=== PATIENT | female | born 1965 | race Caucasian/White ===

== ENCOUNTER 2018-12-26 12:41 | Inpatient (IN) ==
[2018-12-26] MEDS ORDERED: ONDANSETRON 4 MG/2 ML VIAL IV PRN (12:55)
[2018-12-26] MEDS ORDERED: PROMETHAZINE 25 MG/1 ML VIAL IM PRN (12:55)
[2018-12-26] MEDS ORDERED: ACETAMINOPHEN 325 MG TABLET PO PRN (12:55)
[2018-12-26] MEDS ORDERED: METHOCARBAMOL 750 MG TABLET PO PRN (12:57)
[2018-12-26] MEDS ORDERED: DICYCLOMINE 10 MG CAPSULE PO PRN (12:57)
[2018-12-26 13:58] LABS: Basophils # 0.1 10*3/uL (0.0-0.2); Basophils % 0.5 % (0.0-0.8); Eosinophils # 0.2 10*3/uL (0.0-0.87); Eosinophils % 1.3 % (0.00-10.9); Hematocrit 39.6 VOL% (35.7-47.0); Immature Granulocytes % 0.4 %; Immature Granulocytes Absolute 0.05 #; Lymphocytes # 4.9 10*3/uL (1.4-4.0); Lymphocytes % 35.5 % (21.3-54.2); Mean Corpuscular HGB Conc 32.8 GM/DL (32-36); Mean Corpuscular Hemoglobin 30 PG (27-34); Mean Platelet Volume 10.4 FL (9.6-12.0); Monocytes # 0.9 10*3/uL (0.11-0.8); Monocytes % 6.6 % (1.7-12.7); Neutrophils # 7.6 10*3/uL (1.4-7.4); Neutrophils % 55.7 % (38.7-73.9); Platelet Count 256 T/CUMM (130-400); Red Blood Count 4.35 MC/CUMM (3.8-5.5); Red Cell Distribution Width 12.8 % (9.3-17.3); White Blood Count 13.7 T/CUMM (4-12)
[2018-12-26] MEDS ORDERED: THIAMINE INJ 100 MG, FOLIC ACID INJ 1 MG, MULTIVITAMIN INJ 10 ML in SODIUM CHLORIDE 0.9... IV ONE (14:00)
[2018-12-26 14:08] LABS: INR 0.9; PT Patient Result 10.3 SECS; Partial Thromboplastin Time 31.5 SECS (0-40)
[2018-12-26 14:29] LABS: Folate 10.3 NG/ML (5.4-24.0)
[2018-12-26 14:30] LABS: Alanine Aminotransferase 22 U/L (13-56); Albumin 3.9 G/DL (3.4-5.0); Alkaline Phosphatase 88 U/L (45-117); Aspartate Amino Transferase 15 U/L (0-37); Bilirubin,Total < 0.39 MG/DL (0.2-1.0); Blood Urea Nitrogen 6 MG/DL (7-18); Calcium 8.7 MG/DL (8.5-10.1); Glucose 79 MG/DL (74-106); Osmolality,Calculated 254.9 MOS/KG (273-304); Potassium 3.6 MMOL/L (3.5-5.1); Sodium 129 MMOL/L (136-145); Thyroid Stimulating Hormone 0.901 uIU/ml (0.358-3.74); Total Protein 7.3 G/DL (6.4-8.3)
[2018-12-26] MEDS ORDERED: PNEUMOCOCCAL VACCINE (23 VALENT) 0.5 ML VIAL IM ONE (16:19)
[2018-12-26] MEDS ORDERED: INFLUENZA VIRUS VACCINE 0.5 ML SYRINGE IM ONE (16:19)
[2018-12-26] MEDS: chlordiazePOXIDE 25 MG CAPSULE PO SCH ×2 (16:54→19:59)
[2018-12-26] MEDS: FLUCONAZOLE 200 MG TABLET PO SCH (16:54)
[2018-12-26] MEDS: NICOTINE 21 MG/24 HR PATCH TRANSDERM SCH (16:55)
[2018-12-26] MEDS: LORazepam 0.5 MG TABLET PO SCH ×3 (16:55→21:15)
[2018-12-26] MEDS: NYSTATIN CREAM 15 GM TUBE TOP SCH ×2 (18:29→21:17)
[2018-12-26 22:16] LABS: Barbiturates Screen,Urine Negative (Negative); Benzodiazepines Screen,Urine Positive (Negative); Cannabinoid Screen,Urine Negative (Negative); Opiate Screen,Urine Negative (Negative); Phencyclidine Screen,Urine Negative (Negative)
[2018-12-26] MEDS ORDERED: QUEtiapine 100 MG TABLET PO SCH (23:30)
[2018-12-26] MEDS: SERTRALINE 100 MG TABLET PO SCH (23:36)
[2018-12-26] MEDS: SODIUM CHLORIDE 0.9% 1,000 ML IV SCH (23:37)
[2018-12-27] MEDS: chlordiazePOXIDE 25 MG CAPSULE PO SCH ×4 (01:09→20:34)
[2018-12-27] MEDS: LORazepam 0.5 MG TABLET PO SCH ×5 (01:09→18:05)
[2018-12-27 05:26] LABS: Apearance,Urine CLEAR (Clear); Bacteria,Urine Many /HPF (Few); Bilirubin,Urine Negative (Negative); Blood, Urine Negative (Negative); Glucose,Urine (UA) Negative (Negative); Ketones,Urine Negative (Negative); Nitrite,Urine Negative (Negative); Protein,Urine Negative; RBC,Urine <1 /HPF (0-4); Squamous Epithelial Cell,Urine Occasional /HPF (0-10); Urine Color Yellow (Yellow); Urine Specific Gravity 1.005 (1.001-1.035); Urine Urobilinogen < 2.0 EU/DL (0.2-1.0); WBC,Urine <1 /HPF (0-6)
[2018-12-27 06:21] LABS: Risk Ratio 2.71; VLDL CHOLESTEROL 30.6 MG/DL
[2018-12-27] MEDS: PANTOPRAZOLE 40 MG TABLET PO SCH (09:33)
[2018-12-27] MEDS: NYSTATIN CREAM 15 GM TUBE TOP SCH ×3 (09:33→20:37)
[2018-12-27] MEDS: QUEtiapine 100 MG TABLET PO SCH ×2 (09:33→12:59)
[2018-12-27] MEDS: NICOTINE 21 MG/24 HR PATCH TRANSDERM SCH (09:33)
[2018-12-27] MEDS: FLUCONAZOLE 200 MG TABLET PO SCH (09:33)
[2018-12-27] MEDS ORDERED: ALBUTEROL 2.5 MG/3 ML NEB RESP TX PRN (11:11)
[2018-12-27] MEDS ORDERED: FLUTICASONE INH SCH (11:15)
[2018-12-27] MEDS ORDERED: VILANTEROL INH SCH (11:15)
[2018-12-27] MEDS: LORazepam 2 MG/1 ML VIAL IV PRN ×3 (11:22→22:05)
[2018-12-27] MEDS ORDERED: SERTRALINE 100 MG TABLET PO SCH (11:30)
[2018-12-27] MEDS: LEVOTHYROXINE 100 MCG TABLET PO SCH (12:59)
[2018-12-27] MEDS: BENZTROPINE 1 MG TABLET PO SCH ×2 (12:59→20:34)
[2018-12-27] MEDS: HydrOXYzine PAMOATE 25 MG CAPSULE PO PRN (17:08)
[2018-12-27] MEDS: SODIUM CHLORIDE 0.9% 1,000 ML IV SCH (18:18)
[2018-12-27] MEDS ORDERED: QUEtiapine 100 MG TABLET PO SCH (19:00)
[2018-12-27] MEDS: SERTRALINE 100 MG TABLET PO SCH (20:35)
[2018-12-28] MEDS: HydrOXYzine PAMOATE 25 MG CAPSULE PO PRN (00:11)
[2018-12-28] MEDS: LORazepam 0.5 MG TABLET PO SCH ×2 (00:12→06:11)
[2018-12-28] MEDS: LORazepam 2 MG/1 ML VIAL IV PRN ×2 (04:12→08:51)
[2018-12-28 04:58] LABS: Calcium 8.5 MG/DL (8.5-10.1)
[2018-12-28] MEDS: chlordiazePOXIDE 25 MG CAPSULE PO SCH (05:32)
[2018-12-28 07:53] VITALS: BP 146/95
[2018-12-28] MEDS: LEVOTHYROXINE 100 MCG TABLET PO SCH (08:48)
[2018-12-28] MEDS: NYSTATIN CREAM 15 GM TUBE TOP SCH (08:49)
[2018-12-28] MEDS: QUEtiapine 100 MG TABLET PO SCH (08:49)
[2018-12-28] MEDS: PANTOPRAZOLE 40 MG TABLET PO SCH (08:49)
[2018-12-28] MEDS: NICOTINE 21 MG/24 HR PATCH TRANSDERM SCH (08:49)
[2018-12-28] MEDS: FLUCONAZOLE 200 MG TABLET PO SCH (08:49)
[2018-12-28] MEDS ORDERED: FOLIC ACID 1 MG TABLET PO SCH (09:00)
[2018-12-28] MEDS ORDERED: ROSUVASTATIN 20 MG TABLET PO SCH (09:00)
[2018-12-28] MEDS ORDERED: MULTIVITAMIN (CENTRUM) TABLET PO SCH (09:00)
[2018-12-28] MEDS ORDERED: THIAMINE 100 MG TABLET PO SCH (09:00)
== END 2018-12-28 10:10 | disposition left against medical advice (07) | DRG 894 ==
LOC: N.4E 12:56
PROVIDERS: ADMIT Emergency Medicine; ATTEND Emergency Medicine

== ENCOUNTER 2019-02-12 16:19 | Inpatient (IN) ==
[2019-02-12] MEDS ORDERED: DIAZEPAM 10 MG/2 ML SYRINGE IV PRN (17:50)
[2019-02-12] MEDS ORDERED: NICOTINE 21 MG/24 HR PATCH TRANSDERM PRN (17:53)
[2019-02-12] MEDS ORDERED: ACETAMINOPHEN 325 MG TABLET PO PRN (17:53)
[2019-02-12] MEDS: chlordiazePOXIDE 25 MG CAPSULE PO PRN ×2 (18:34→23:20)
[2019-02-12] MEDS: DIAZEPAM 5 MG TABLET PO PRN (18:34)
[2019-02-12] MEDS: THIAMINE 200 MG/2 ML VIAL IV SCH (18:35)
[2019-02-12] MEDS: SODIUM CHLORIDE 0.9% 1,000 ML IV SCH (18:35)
[2019-02-12 18:52] LABS: Basophils # 0.1 10*3/uL (0.0-0.2); Basophils % 0.4 % (0.0-0.8); Eosinophils # 0.3 10*3/uL (0.0-0.87); Eosinophils % 1.9 % (0.00-10.9); Hematocrit 42.7 VOL% (35.7-47.0); Hemoglobin 13.9 GM/DL (12.0-16.0); Immature Granulocytes % 0.5 %; Immature Granulocytes Absolute 0.08 #; Lymphocytes # 6.6 10*3/uL (1.4-4.0); Lymphocytes % 42.1 % (21.3-54.2); Mean Corpuscular HGB Conc 32.6 GM/DL (32-36); Mean Corpuscular Hemoglobin 29 PG (27-34); Mean Corpuscular Volume 90.3 FL (87-102); Mean Platelet Volume 11.3 FL (9.6-12.0); Monocytes # 1.1 10*3/uL (0.11-0.8); Monocytes % 7.1 % (1.7-12.7); Neutrophils # 7.5 10*3/uL (1.4-7.4); Platelet Count 267 T/CUMM (130-400); Red Blood Count 4.73 MC/CUMM (3.8-5.5); Red Cell Distribution Width 13.7 % (9.3-17.3); White Blood Count 15.6 T/CUMM (4-12)
[2019-02-12 19:01] LABS: PT Patient Result 11.3 SECS
[2019-02-12 19:12] LABS: Alanine Aminotransferase 26 U/L (13-56); Albumin 3.8 G/DL (3.4-5.0); Alkaline Phosphatase 97 U/L (45-117); Aspartate Amino Transferase 22 U/L (0-37); Bilirubin,Total < 0.39 MG/DL (0.2-1.0); Blood Urea Nitrogen 9 MG/DL (7-18); Calcium 8.7 MG/DL (8.5-10.1); Glucose 105 MG/DL (74-106); Osmolality,Calculated 271.8 MOS/KG (273-304); Potassium 3.4 MMOL/L (3.5-5.1); Sodium 137 MMOL/L (136-145); Total Protein 7.4 G/DL (6.4-8.3)
[2019-02-12 23:07] LABS: Barbiturates Screen,Urine Negative (Negative); Benzodiazepines Screen,Urine Negative (Negative); Cannabinoid Screen,Urine Negative (Negative); Opiate Screen,Urine Negative (Negative); Phencyclidine Screen,Urine Negative (Negative)
[2019-02-12] MEDS ORDERED: SERTRALINE 100 MG TABLET PO SCH (23:30)
[2019-02-12] MEDS ORDERED: NON-FORMULARY MEDICATION (Quetiapine Fumarate [Seroquel] 300 MG) PO SCH (23:30)
[2019-02-13] MEDS: LURASIDONE 40 MG TABLET PO SCH ×4 (00:33→21:35)
[2019-02-13] MEDS: SERTRALINE 100 MG TABLET PO SCH ×2 (00:33→21:10)
[2019-02-13] MEDS: QUEtiapine 100 MG TABLET PO SCH ×3 (00:33→21:10)
[2019-02-13] MEDS: DIAZEPAM 5 MG TABLET PO PRN (04:46)
[2019-02-13] MEDS: chlordiazePOXIDE 25 MG CAPSULE PO PRN ×3 (04:46→15:55)
[2019-02-13] MEDS ORDERED: LURASIDONE 40 MG TABLET PO SCH (07:30)
[2019-02-13] MEDS: FOLIC ACID 1 MG TABLET PO SCH (08:34)
[2019-02-13] MEDS: MULTIVITAMIN (CENTRUM) TABLET PO SCH (08:34)
[2019-02-13] MEDS: THIAMINE 200 MG/2 ML VIAL IV SCH (08:35)
[2019-02-13] MEDS: SODIUM CHLORIDE 0.9% 1,000 ML IV SCH (08:38)
[2019-02-13] MEDS ORDERED: SERTRALINE 100 MG TABLET PO SCH (09:00)
[2019-02-13] MEDS ORDERED: LORazepam 1 MG TABLET PO PRN (11:11)
[2019-02-13] MEDS ORDERED: POTASSIUM CHLORIDE 20 MEQ TABLET PO ONE (11:15)
[2019-02-13] MEDS: cloNIDine 0.1 MG TABLET PO SCH ×2 (11:37→21:10)
[2019-02-13] MEDS: buPROPion SR 100 MG TABLET PO SCH (11:37)
[2019-02-13] MEDS ORDERED: ALBUTEROL 2.5 MG/3 ML NEB RESP TX PRN (13:00)
[2019-02-13] MEDS ORDERED: BUTALBITAL/ACETAMIN/CAFFEINE 50-325-40 MG TABLET PO PRN (13:32)
[2019-02-13] MEDS: PANTOPRAZOLE 40 MG TABLET PO SCH (13:54)
[2019-02-13] MEDS: NICOTINE 21 MG/24 HR PATCH TRANSDERM SCH (16:30)
[2019-02-13] MEDS: LORazepam 2 MG/1 ML VIAL IV SCH (17:48)
[2019-02-13] MEDS: DEXTROSE 5% NACL 0.45% 1,000 ML IV SCH (17:49)
[2019-02-13] MEDS: LORazepam 2 MG/1 ML VIAL IV PRN ×2 (19:23→21:15)
[2019-02-13] MEDS: DEXMEDETOMIDINE 200 MCG in SODIUM CHLORIDE 0.9% 48 ML IV PRN ×2 (20:05→23:25)
[2019-02-13] MEDS ORDERED: THIAMINE 200 MG/2 ML VIAL IV SCH (21:00)
[2019-02-13] MEDS: ENOXAPARIN 40 MG/0.4 ML SYRINGE SUBCUT SCH (21:10)
[2019-02-13] MEDS: THIAMINE INJ 400 MG in SODIUM CHLORIDE 0.9% 100 ML IV SCH (21:10)
[2019-02-13] MEDS: PREGABALIN 100 MG CAPSULE PO SCH (21:10)
[2019-02-13] MEDS: CETIRIZINE 10 MG TABLET PO SCH (21:10)
[2019-02-13] MEDS: BENZTROPINE 1 MG TABLET PO SCH (21:10)
[2019-02-14] MEDS: LORazepam 2 MG/1 ML VIAL IV SCH ×3 (01:50→17:55)
[2019-02-14] MEDS: DEXMEDETOMIDINE 200 MCG in SODIUM CHLORIDE 0.9% 48 ML IV PRN ×6 (03:30→22:10)
[2019-02-14] MEDS: buPROPion SR 100 MG TABLET PO SCH ×2 (08:16→22:09)
[2019-02-14] MEDS: FOLIC ACID 1 MG TABLET PO SCH (08:16)
[2019-02-14] MEDS: MULTIVITAMIN (CENTRUM) TABLET PO SCH (08:17)
[2019-02-14] MEDS: BENZTROPINE 1 MG TABLET PO SCH ×2 (08:17→22:08)
[2019-02-14] MEDS: cloNIDine 0.1 MG TABLET PO SCH ×3 (08:17→22:10)
[2019-02-14] MEDS: CHOLECALCIFEROL 1,000 UNIT TABLET PO SCH (08:17)
[2019-02-14] MEDS: ROSUVASTATIN 20 MG TABLET PO SCH (08:18)
[2019-02-14] MEDS: NICOTINE 21 MG/24 HR PATCH TRANSDERM SCH (08:18)
[2019-02-14] MEDS: QUEtiapine 100 MG TABLET PO SCH ×2 (08:19→22:09)
[2019-02-14] MEDS: LEVOTHYROXINE 112 MCG TABLET PO SCH (08:21)
[2019-02-14] MEDS: PANTOPRAZOLE 40 MG TABLET PO SCH (08:50)
[2019-02-14] MEDS ORDERED: NON-FORMULARY MEDICATION (Multivit-Min/Fa/Lycopen/Lutein [Centrum Silver Tablet] 1 EACH) PO SCH (09:00)
[2019-02-14 09:31] LABS: Basophils % 0.5 % (0.0-0.8); Eosinophils # 0.3 10*3/uL (0.0-0.87); Eosinophils % 3.2 % (0.00-10.9); Hematocrit 37.5 VOL% (35.7-47.0); Hemoglobin 11.9 GM/DL (12.0-16.0); Immature Granulocytes % 0.4 %; Immature Granulocytes Absolute 0.03 #; Lymphocytes # 3.3 10*3/uL (1.4-4.0); Lymphocytes % 42.2 % (21.3-54.2); Mean Corpuscular HGB Conc 31.7 GM/DL (32-36); Mean Corpuscular Hemoglobin 30 PG (27-34); Mean Corpuscular Volume 94.2 FL (87-102); Mean Platelet Volume 11.2 FL (9.6-12.0); Monocytes # 0.6 10*3/uL (0.11-0.8); Monocytes % 7.9 % (1.7-12.7); Neutrophils # 3.6 10*3/uL (1.4-7.4); Neutrophils % 45.8 % (38.7-73.9); Platelet Count 193 T/CUMM (130-400); Red Blood Count 3.98 MC/CUMM (3.8-5.5); Red Cell Distribution Width 13.6 % (9.3-17.3); White Blood Count 7.9 T/CUMM (4-12)
[2019-02-14] MEDS: DEXTROSE 5% NACL 0.45% 1,000 ML IV SCH ×2 (09:32→21:30)
[2019-02-14 10:04] LABS: Calcium 8.4 MG/DL (8.5-10.1); Osmolality,Calculated 279.4 MOS/KG (273-304)
[2019-02-14] MEDS: FLUTICASONE 50 MCG NASAL SPRAY 16 GM BOTTLE BOTH NARES SCH (10:15)
[2019-02-14] MEDS: Fluticasone/Vilanterol [Breo Ellipta 200-25 Mcg Inh] 1 PUFF INH SCH (10:15)
[2019-02-14] MEDS: THIAMINE INJ 400 MG in SODIUM CHLORIDE 0.9% 100 ML IV SCH ×2 (10:19→21:30)
[2019-02-14] MEDS: LACTOBACILLUS ACIDOPHILUS/BULGARICUS CHEW TABLET PO SCH (10:20)
[2019-02-14] MEDS: LISINOPRIL/HCTZ 10-12.5 MG TABLET PO SCH (10:30)
[2019-02-14] MEDS: LORazepam 2 MG/1 ML VIAL IV PRN ×2 (12:27→16:14)
[2019-02-14] MEDS ORDERED: ERGOCALCIFEROL 50,000 UNIT CAPSULE PO ONE (14:00)
[2019-02-14] MEDS: PREGABALIN 100 MG CAPSULE PO SCH (22:08)
[2019-02-14] MEDS: ENOXAPARIN 40 MG/0.4 ML SYRINGE SUBCUT SCH (22:08)
[2019-02-14] MEDS: LURASIDONE 40 MG TABLET PO SCH (22:08)
[2019-02-14] MEDS: SERTRALINE 100 MG TABLET PO SCH (22:09)
[2019-02-14] MEDS: CETIRIZINE 10 MG TABLET PO SCH (22:09)
[2019-02-15] MEDS: DEXMEDETOMIDINE 200 MCG in SODIUM CHLORIDE 0.9% 48 ML IV PRN ×3 (01:30→11:49)
[2019-02-15] MEDS: LORazepam 2 MG/1 ML VIAL IV SCH (01:30)
[2019-02-15 06:30] VITALS: BP 137/78
[2019-02-15] MEDS: LEVOTHYROXINE 112 MCG TABLET PO SCH (06:33)
[2019-02-15 06:36] LABS: Basophils # 0.1 10*3/uL (0.0-0.2); Basophils % 0.6 % (0.0-0.8); Eosinophils # 0.2 10*3/uL (0.0-0.87); Eosinophils % 2.7 % (0.00-10.9); Hemoglobin 12.4 GM/DL (12.0-16.0); Immature Granulocytes % 0.3 %; Immature Granulocytes Absolute 0.03 #; Lymphocytes # 4.4 10*3/uL (1.4-4.0); Lymphocytes % 48.4 % (21.3-54.2); Mean Corpuscular HGB Conc 31.8 GM/DL (32-36); Mean Corpuscular Hemoglobin 30 PG (27-34); Mean Corpuscular Volume 94.7 FL (87-102); Mean Platelet Volume 12.2 FL (9.6-12.0); Monocytes # 0.5 10*3/uL (0.11-0.8); Monocytes % 5.1 % (1.7-12.7); Neutrophils # 3.9 10*3/uL (1.4-7.4); Neutrophils % 42.9 % (38.7-73.9); Platelet Count 217 T/CUMM (130-400); Red Blood Count 4.12 MC/CUMM (3.8-5.5); Red Cell Distribution Width 13.4 % (9.3-17.3)
[2019-02-15 06:45] LABS: Calcium 8.4 MG/DL (8.5-10.1); Osmolality,Calculated 285.8 MOS/KG (273-304); Potassium 3.5 MMOL/L (3.5-5.1)
[2019-02-15] MEDS: THIAMINE INJ 400 MG in SODIUM CHLORIDE 0.9% 100 ML IV SCH ×2 (09:31→20:44)
[2019-02-15] MEDS: FOLIC ACID 1 MG TABLET PO SCH (09:33)
[2019-02-15] MEDS: CHOLECALCIFEROL 1,000 UNIT TABLET PO SCH (09:33)
[2019-02-15] MEDS: ROSUVASTATIN 20 MG TABLET PO SCH (09:33)
[2019-02-15] MEDS: cloNIDine 0.1 MG TABLET PO SCH ×2 (09:33→20:27)
[2019-02-15] MEDS: MULTIVITAMIN (CENTRUM) TABLET PO SCH (09:33)
[2019-02-15] MEDS: BENZTROPINE 1 MG TABLET PO SCH ×2 (09:33→20:27)
[2019-02-15] MEDS: buPROPion SR 100 MG TABLET PO SCH ×2 (09:34→20:27)
[2019-02-15] MEDS: QUEtiapine 100 MG TABLET PO SCH ×2 (09:34→20:29)
[2019-02-15] MEDS: PANTOPRAZOLE 40 MG TABLET PO SCH (09:34)
[2019-02-15] MEDS: LISINOPRIL/HCTZ 10-12.5 MG TABLET PO SCH (09:35)
[2019-02-15] MEDS: NICOTINE 21 MG/24 HR PATCH TRANSDERM SCH (09:35)
[2019-02-15] MEDS: FLUTICASONE 50 MCG NASAL SPRAY 16 GM BOTTLE BOTH NARES SCH (09:47)
[2019-02-15] MEDS: Fluticasone/Vilanterol [Breo Ellipta 200-25 Mcg Inh] 1 PUFF INH SCH (09:47)
[2019-02-15] MEDS: LACTOBACILLUS ACIDOPHILUS/BULGARICUS CHEW TABLET PO SCH (09:48)
[2019-02-15] MEDS: LORazepam 2 MG/1 ML VIAL IV PRN ×4 (10:44→19:40)
[2019-02-15] MEDS: DEXTROSE 5% NACL 0.45% 1,000 ML IV SCH (12:56)
[2019-02-15] MEDS: ENOXAPARIN 40 MG/0.4 ML SYRINGE SUBCUT SCH (20:26)
[2019-02-15] MEDS: SERTRALINE 100 MG TABLET PO SCH (20:27)
[2019-02-15] MEDS: LURASIDONE 40 MG TABLET PO SCH (20:28)
[2019-02-15] MEDS: PREGABALIN 100 MG CAPSULE PO SCH (20:28)
[2019-02-15] MEDS: CETIRIZINE 10 MG TABLET PO SCH (20:31)
[2019-02-16] MEDS: LORazepam 2 MG/1 ML VIAL IV PRN ×3 (05:10→11:24)
[2019-02-16 05:25] LABS: Basophils # 0.1 10*3/uL (0.0-0.2); Basophils % 0.6 % (0.0-0.8); Eosinophils # 0.2 10*3/uL (0.0-0.87); Hematocrit 38.5 VOL% (35.7-47.0); Hemoglobin 12.4 GM/DL (12.0-16.0); Immature Granulocytes % 0.5 %; Immature Granulocytes Absolute 0.05 #; Lymphocytes # 3.8 10*3/uL (1.4-4.0); Lymphocytes % 37.3 % (21.3-54.2); Mean Corpuscular HGB Conc 32.2 GM/DL (32-36); Mean Corpuscular Hemoglobin 30 PG (27-34); Mean Corpuscular Volume 93.9 FL (87-102); Mean Platelet Volume 11.4 FL (9.6-12.0); Monocytes # 0.7 10*3/uL (0.11-0.8); Monocytes % 7.1 % (1.7-12.7); Neutrophils # 5.4 10*3/uL (1.4-7.4); Neutrophils % 52.5 % (38.7-73.9); Platelet Count 201 T/CUMM (130-400); Red Cell Distribution Width 13.5 % (9.3-17.3); White Blood Count 10.2 T/CUMM (4-12)
[2019-02-16 05:45] LABS: Calcium 8.6 MG/DL (8.5-10.1); Potassium 3.4 MMOL/L (3.5-5.1)
[2019-02-16] MEDS: LEVOTHYROXINE 112 MCG TABLET PO SCH (06:05)
[2019-02-16] MEDS: FOLIC ACID 1 MG TABLET PO SCH (08:39)
[2019-02-16] MEDS: BENZTROPINE 1 MG TABLET PO SCH (08:39)
[2019-02-16] MEDS: buPROPion SR 100 MG TABLET PO SCH (08:39)
[2019-02-16] MEDS: CHOLECALCIFEROL 1,000 UNIT TABLET PO SCH (08:39)
[2019-02-16] MEDS: PANTOPRAZOLE 40 MG TABLET PO SCH (08:39)
[2019-02-16] MEDS: LISINOPRIL/HCTZ 10-12.5 MG TABLET PO SCH (08:39)
[2019-02-16] MEDS: NICOTINE 21 MG/24 HR PATCH TRANSDERM SCH (08:40)
[2019-02-16] MEDS: LACTOBACILLUS ACIDOPHILUS/BULGARICUS CHEW TABLET PO SCH (08:40)
[2019-02-16] MEDS: cloNIDine 0.1 MG TABLET PO SCH (08:40)
[2019-02-16] MEDS: ROSUVASTATIN 20 MG TABLET PO SCH (08:40)
[2019-02-16] MEDS: QUEtiapine 100 MG TABLET PO SCH (08:40)
[2019-02-16] MEDS: THIAMINE INJ 400 MG in SODIUM CHLORIDE 0.9% 100 ML IV SCH (08:59)
[2019-02-16] MEDS: FLUTICASONE 50 MCG NASAL SPRAY 16 GM BOTTLE BOTH NARES SCH (08:59)
[2019-02-16] MEDS: Fluticasone/Vilanterol [Breo Ellipta 200-25 Mcg Inh] 1 PUFF INH SCH (08:59)
[2019-02-16] MEDS: MULTIVITAMIN (CENTRUM) TABLET PO SCH (09:45)
[2019-02-16] MEDS ORDERED: buPROPion SR 150 MG TABLET PO SCH (10:20)
[2019-02-16] MEDS ORDERED: POTASSIUM CHLORIDE 20 MEQ TABLET PO ONE (10:50)
== END 2019-02-16 11:41 | disposition home or self-care (01) | DRG 897 ==
LOC: N.4E 16:24 → SUATTDRO 16:24 → N.CC 02-13 18:24
PROVIDERS: ADMIT Hospitalist; ATTEND Hospitalist

== ENCOUNTER 2022-04-19 11:55 | Observation (INO) ==
[2022-04-19] MEDS ORDERED: NITROGLYCERIN 2% OINT 1 INCH/GM PACK TOP STA (12:24)
[2022-04-19] MEDS ORDERED: METOPROLOL TARTRATE 5 MG/5 ML VIAL IV STA ×2 (12:24→13:17)
[2022-04-19] MEDS ORDERED: ALUM/MAG/SIMETH/LIDO VISC 1:1 30 ML BOTTLE PO STA (12:24)
[2022-04-19 12:49] LABS: Basophils # 0.1 10*3/uL (0.0-0.2); Basophils % 0.5 % (0.0-0.8); Eosinophils # 0.4 10*3/uL (0.0-0.87); Eosinophils % 2.9 % (0.00-10.9); Hematocrit 42.6 VOL% (35.7-47.0); Immature Granulocytes % 0.3 %; Immature Granulocytes Absolute 0.04 #; Lymphocytes # 4.7 10*3/uL (1.4-4.0); Mean Corpuscular HGB Conc 32.9 GM/DL (32-36); Mean Corpuscular Volume 94.7 FL (87-102); Mean Platelet Volume 11.1 FL (9.6-12.0); Monocytes # 0.7 10*3/uL (0.11-0.8); Monocytes % 5.1 % (1.7-12.7); Neutrophils % 55.2 % (38.7-73.9); Platelet Count 241 T/CUMM (130-400); Red Cell Distribution Width 14.6 % (9.3-17.3); White Blood Count 12.9 T/CUMM (4-12)
[2022-04-19 13:08] LABS: Alanine Aminotransferase 42 U/L (13-56); Albumin 3.2 G/DL (3.4-5.0); Alkaline Phosphatase 70 U/L (45-117); Aspartate Amino Transferase 35 U/L (0-37); Bilirubin,Total < 0.39 MG/DL (0.20-1.00); Blood Urea Nitrogen 4 MG/DL (7-18); Calcium 9.1 MG/DL (8.5-10.1); Carbon Dioxide 26 MMOL/L (21-32); Chloride 106 MMOL/L (98-107); Glucose 133 MG/DL (74-106); Osmolality,Calculated 279.3 MOS/KG (273-304); Sodium 141 MMOL/L (136-145); Total Protein 6.2 G/DL (6.4-8.2)
[2022-04-19 13:24] LABS: Platelet Estimate Normal
[2022-04-19] MEDS ORDERED: ZALEPLON 5 MG CAPSULE PO PRN (13:39)
[2022-04-19] MEDS ORDERED: hydrALAZINE 20 MG/1 ML VIAL IV PRN (13:39)
[2022-04-19] MEDS ORDERED: diphenhydrAMINE CAP 25 MG CAPSULE PO PRN (13:39)
[2022-04-19] MEDS ORDERED: CALCIUM CARBONATE CHEW 500 MG TABLET PO PRN (13:39)
[2022-04-19] MEDS ORDERED: SIMETHICONE CHEW 125 MG TABLET PO PRN (13:39)
[2022-04-19] MEDS ORDERED: LACTULOSE 20 GM/30 ML UDCUP PO PRN (13:39)
[2022-04-19] MEDS ORDERED: ALUMINUM/MAGNES/SIMETH MAX STR 30 ML UDCUP PO PRN (13:39)
[2022-04-19] MEDS ORDERED: BISACODYL 5 MG TABLET PO PRN (13:39)
[2022-04-19] MEDS ORDERED: ONDANSETRON 4 MG/2 ML VIAL IV PRN (13:39)
[2022-04-19] MEDS ORDERED: FLUTICASONE 50 MCG NASAL SPRAY 16 GM BOTTLE BOTH NARES PRN (13:43)
[2022-04-19] MEDS ORDERED: DEXTROMETHORPHAN PO PRN (13:43)
[2022-04-19] MEDS ORDERED: [UNRECOGNIZED DRUG - OTHER] PO PRN (13:43)
[2022-04-19] MEDS ORDERED: traMADol 50 MG TABLET PO PRN (13:43)
[2022-04-19] MEDS ORDERED: tiZANidine 4 MG TABLET PO PRN (13:43)
[2022-04-19] MEDS ORDERED: PHENYLEPHRINE PO PRN (13:43)
[2022-04-19] MEDS ORDERED: LOPERAMIDE 2 MG CAPSULE PO PRN (13:43)
[2022-04-19] MEDS ORDERED: GLUCAGON 1 MG VIAL IM PRN (13:43)
[2022-04-19] MEDS ORDERED: SIMETHICONE 125 MG PO PRN (13:43)
[2022-04-19] MEDS ORDERED: BROMPHENIRAMINE PO PRN (13:43)
[2022-04-19] MEDS ORDERED: DEXTROSE 10% 250 ML BAG IV PRN (13:43)
[2022-04-19] MEDS ORDERED: ALIROCUMAB 75 MG/ML SUBCUT SCH (13:45)
[2022-04-19] MEDS ORDERED: ENOXAPARIN 40 MG/0.4 ML SYRINGE SUBCUT SCH (14:00)
[2022-04-19 14:18] LABS: Urine Appearance Clear (Clear); Urine Color Yellow (Yellow)
[2022-04-19 14:19] LABS: Bilirubin,Urine Negative (Negative); Blood, Urine Negative (Negative); Glucose,Urine (UA) Negative (Negative); Ketones,Urine Negative (Negative); Nitrite,Urine Negative (Negative); Protein,Urine Negative (Negative); Urine Urobilinogen 0.2 eU/dL (<2.0)
[2022-04-19 14:20] LABS: Bacteria,Urine Occasional /HPF (Few); RBC,Urine 1 /HPF (0-4); Squamous Epithelial Cell,Urine Occasional /HPF (0-10)
[2022-04-19] MEDS ORDERED: ALBUTEROL 2.5 MG/3 ML NEB RESP TX PRN (14:28)
[2022-04-19] MEDS ORDERED: clonazePAM 0.5 MG TABLET PO PRN ×2 (14:30→14:52)
[2022-04-19] MEDS ORDERED: clonazePAM 0.5 MG TABLET PO ONE (14:40)
[2022-04-19] MEDS: NICOTINE 21 MG/24 HR PATCH TRANSDERM SCH (15:06)
[2022-04-19] MEDS: GABAPENTIN 400 MG CAPSULE PO SCH ×2 (15:06→21:04)
[2022-04-19] MEDS: INSULIN LISPRO 100 UNIT/ML SUBCUT SCH ×2 (16:41→21:53)
[2022-04-19] MEDS: carvediloL 25 MG TABLET PO SCH (17:52)
[2022-04-19] MEDS: MORPHINE 2 MG/1 ML SYRINGE IV PRN (18:29)
[2022-04-19] MEDS ORDERED: LOSARTAN 50 MG TABLET PO SCH (21:00)
[2022-04-19] MEDS: cloNIDine 0.1 MG TABLET PO SCH (21:03)
[2022-04-19] MEDS ORDERED: QUEtiapine 100 MG TABLET PO SCH (22:30)
[2022-04-19] MEDS ORDERED: clonazePAM 0.5 MG TABLET PO SCH (22:30)
[2022-04-19] MEDS: BENZTROPINE 1 MG TABLET PO SCH (23:03)
[2022-04-20] MEDS: MORPHINE 2 MG/1 ML SYRINGE IV PRN ×2 (01:56→05:34)
[2022-04-20 05:41] LABS: Basophils # 0.1 10*3/uL (0.0-0.2); Basophils % 0.5 % (0.0-0.8); Eosinophils # 0.3 10*3/uL (0.0-0.87); Eosinophils % 2.7 % (0.00-10.9); Hematocrit 41.4 VOL% (35.7-47.0); Hemoglobin 13.7 GM/DL (12.0-16.0); Immature Granulocytes % 0.3 %; Immature Granulocytes Absolute 0.03 #; Lymphocytes # 3.7 10*3/uL (1.4-4.0); Lymphocytes % 34.5 % (21.3-54.2); Mean Corpuscular HGB Conc 33.1 GM/DL (32-36); Mean Corpuscular Volume 95.8 FL (87-102); Mean Platelet Volume 10.7 FL (9.6-12.0); Monocytes # 0.7 10*3/uL (0.11-0.8); Monocytes % 6.2 % (1.7-12.7); Neutrophils % 55.8 % (38.7-73.9); Platelet Count 226 T/CUMM (130-400); Red Blood Count 4.32 MC/CUMM (3.8-5.5); Red Cell Distribution Width 14.7 % (9.3-17.3); White Blood Count 10.6 T/CUMM (4-12)
[2022-04-20 06:07] LABS: Calcium 8.6 MG/DL (8.5-10.1); Osmolality,Calculated 278.4 MOS/KG (273-304); Risk Ratio 6.47; Thyroid Stimulating Hormone 0.447 uIU/ml (0.358-3.74); VLDL Cholesterol 90.6 MG/DL
[2022-04-20] MEDS ORDERED: LEVOTHYROXINE 150 MCG TABLET PO SCH (06:30)
[2022-04-20] MEDS: NICOTINE 21 MG/24 HR PATCH TRANSDERM SCH (08:19)
[2022-04-20] MEDS ORDERED: PNEUMOCOCCAL VACCINE (23 VALENT) 0.5 ML VIAL IM ONE (08:30)
[2022-04-20] MEDS: INSULIN LISPRO 100 UNIT/ML SUBCUT SCH (08:31)
[2022-04-20] MEDS ORDERED: PANTOPRAZOLE 40 MG TABLET PO SCH (09:00)
[2022-04-20] MEDS: GABAPENTIN 400 MG CAPSULE PO SCH (09:00)
[2022-04-20] MEDS ORDERED: QUEtiapine 100 MG TABLET PO SCH (09:00)
[2022-04-20] MEDS ORDERED: ESCITALOPRAM 10 MG TABLET PO SCH (09:00)
[2022-04-20] MEDS: cloNIDine 0.1 MG TABLET PO SCH (09:00)
[2022-04-20] MEDS ORDERED: CARIPRAZINE 4.5 MG PO SCH (09:00)
[2022-04-20] MEDS ORDERED: CHOLECALCIFEROL 1,000 UNIT TABLET PO SCH (09:00)
[2022-04-20] MEDS ORDERED: ASPIRIN EC 81 MG TABLET PO SCH (09:00)
[2022-04-20] MEDS: carvediloL 25 MG TABLET PO SCH (09:00)
[2022-04-20 12:20] VITALS: BP 149/96
[2022-04-20] MEDS: BENZTROPINE 1 MG TABLET PO SCH (12:28)
[2022-04-20] MEDS ORDERED: ROSUVASTATIN 20 MG TABLET PO SCH (21:00)
== END 2022-04-20 09:13 | disposition home or self-care (01) ==
LOC: N.EDINP 11:55 → N.ED 11:55 → N.EDINP 04-20 09:13
PROVIDERS: ADMIT Internal Medicine Interventional Cardiology; ATTEND Internal Medicine Interventional Cardiology